=== PATIENT | female | born 1985 | race Hispanic/Latino ===

== ENCOUNTER 2023-08-23 12:01 | Emergency (ER) | payer OTHER ==
[2023-08-23 14:08] LABS: Absolute Lymphocytes (CBC) 1.3 K/uL (0.7-4.9); Hematocrit 38.8 % (36.0-45.0); Lymphocytes % 18.8 % (15.3-44.8); MCV 96.6 fL (80-100); MPV 7.5 fL (7.6-11.3); Platelets 330 thou/uL (152-406); RBC Red Blood Cell Count 4.02 M/uL (3.86-4.86)
[2023-08-23 14:16] LABS: Protime INR 1.03
[2023-08-23 14:27] LABS: Albumin 4.1 g/dL (3.4-5.0); Bilirubin Total 0.7 mg/dL (0.2-1.0); Potassium 3.6 mEq/L (3.5-5.1); Protein, Total 8.5 g/dL (6.4-8.2)
--- NOTE | 2023-08-23 16:25 | RAD REPORT ---
EXAM DESCRIPTION: CTAbdomen Pelvis W Contrast - 08/23/2023 4:03 pm CLINICAL HISTORY: Abdominal pain. ABD PAIN COMPARISON: No comparisons TECHNIQUE: Biphasic CT imaging of the abdomen and pelvis was performed with 100 ml non-ionic IV cont rast. All CT scans are performed using dose optimization technique as appropriate and may include automated exposure control or mA/KV adjustment according to patient size. FINDINGS: The lung bases are clear. The liver, spleen, pancreas, adrenal glands and kidneys are within normal limits. No bowel obstruction, free air, intra-abdominal free fluid or abscess. The appendix is normal. No e vidence of significant lymphadenopathy. Trace pelvic free fluid. No fracture evident. Mild sacroiliac joint sclerosis, greater on the left, could indicate sacroiliiti s. IMPRESSION: No acute intra-abdominal or pelvic finding.
--- NOTE | 2023-08-23 16:30 | ER ---
Nurse's Notes [facility] Name: Kayla Silva Age: 38 yrs Sex: Female : 1985 Arrival Date: 08/23/2023 Time: 12:01 Bed 16 Private MD: Diagnosis: Abdominal pain, rectal bleeding Presentation: 08/23 12:38 Chief complaint: Patient states: has had blood in my stool for a bout a week, has had iw diarrhea X 1 week , bright blood that looks like you poured dye in the toilet. Coronavirus screen: At this time, the client does not indicate any symptoms associated with coronavirus-19. Ebola Screen: Patient negative for fever greater than or equal to 101.5 degrees Fahrenheit, and additional compatible Ebola Virus Disease symptoms Patient denies exposure to infectious person. Patient denies travel to an Ebola-affected area in the 21 days before illness onset. No symptoms or risks identified at this time. Initial Sepsis Screen: Does the patient meet any 2 criteria? No. Patient's initial sepsis screen is negative. Does the patient have a suspected source of infection? No. Patient's initial sepsis screen is negative. Risk Assessment: Do you want to hurt yourself or someone else? Patient reports no desire to harm self or others. Onset of symptoms was August 17, 2023. 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 - Social history:: Smoking status: Reported history of juuling and/or vaping. Screenin:31 [facility] ED Fall Risk Assessment (Adult) History of falling in the last 3 months, ld1 including since admission No falls in past 3 months (0 pts). Abuse screen: Denies threats or abuse. Denies injuries from another. Nutritional screening: No deficits noted. Tuberculosis screening: No symptoms or risk factors identified. Assessment: 15:31 General: Appears in no apparent distress. comfortable, Behavior is calm, cooperative, ld1 appropriate for age. Pain: Denies pain. Neuro: Level of Consciousness is awake, alert, obeys commands, Oriented to person, place, time, situation. Cardiovascular: Capillary refill < 3 seconds Patient's skin is warm and dry. Respiratory: Airway is patent Respiratory effort is even, unlabored. GI: Abdomen is round non-distended, Reports bloody stool. : No signs and/or symptoms were reported regarding the genitourinary system. EENT: No signs and/or symptoms were reported regarding the EENT system. Derm: No signs and/or symptoms reported regarding the dermatologic system. Musculoskeletal: No signs and/or symptoms reported regarding the musculoskeletal system. Vital Signs: 12:38 BP 136 / 94; Pulse 78; Resp 16; Temp 98.6; Pulse Ox 100% on R/A; iw 15:37 BP 154 / 66; Pulse 78; Resp 18; Pulse Ox 100% on R/A; Pain 0/10; ld1 15:37 Pain Scale: Adult ld1 ED Course: 12:03 Patient arrived in ED. mg5 12:11 Kimberley Taylor MD is Attending Physician. sp3 12:40 Triage completed. iw 12:40 Arm band placed on. iw 13:56 PT-INR Sent. bc6 13:56 CBC with Diff Sent. bc6 13:56 CMP Sent. bc6 13:56 Lipase Sent. bc6 13:56 Inserted saline lock: 22 gauge in left antecubital area, using aseptic technique. Blood bc6 collected. 15:31 Lientte Miranda, RN is Primary Nurse. ld1 15:31 Patient has correct armband on for positive identification. Bed in low position. Call ld1 light in reach. Side rails up X2. Pulse ox on. NIBP on. Door closed. Noise minimized. Warm blanket given. 15:31 No provider procedures requiring assistance completed. ld1 16:05 CT Abd/Pelvis - IV Contrast Only In Process Unspecified. EDMS 16:29 Dani Tolentino MD is Referral Physician. sp3 16:35 IV discontinued, intact, bleeding controlled, No redness/swelling at site. ld1 Administered Medications: No medications were administered Medication: 15:31 VIS not applicable for this client. ld1 Outcome: 16:30 Discharge ordered by . sp3 16:34 Discharged to home ambulatory, ld1 16:34 Condition: stable 16:34 Discharge instructions given to patient, Instructed on discharge instructions, follow up and referral plans. Demonstrated understanding of instructions, follow-up care, 16:35 Patient left the ED. ld1 Signatures: Dispatcher [employer] Kimberly Pérez, EILEEN ARELLANO iw Linette Miranda RN RN ld1 Kimberley Taylor MD MD sp3 Nati Mcdaniel 6 Michelle Marcelino mg5 Corrections: (The following items were deleted from the chart) 12:41 12:40 Home Meds: None; iw iw 12:42 12:38 Pulse 78bpm; Resp 16bpm; Pulse Ox 100% RA; Temp 98.6F; iw iw
--- NOTE | 2023-08-23 16:31 | EDPHYS ---
Physician Documentation [facility] Name: Kayla Silva Age: 38 yrs Sex: Female : 1985 Arrival Date: 08/23/2023 Time: 12:01 Bed 16 Private MD: ED Physician Kimberley Taylor HPI: 08/23 15:46 This 38 yrs old Female presents to ER via Ambulatory with complaints of Bloody sp3 Stools. 15:46 38-year-old female with no past medical history [facility] to episodic abdominal pain and bright red blood per rectum off-and-on for the past 8 days. Patient states that she has an increased workout routine that may have something to do with it. She denies any current pain or any current diarrhea. Last bright red blood per rectum was yesterday. She denies any fever, vomiting, prior surgical history, rash, known sick contacts, potential bad food, or any other signs or symptoms on ROS at this time.. 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 - Social history:: Smoking status: Reported history of juuling and/or vaping. ROS: 15:48 Constitutional: Negative for fever, chills, and weight loss, Eyes: Negative for injury, sp3 pain, redness, and discharge, ENT: Negative for injury, pain, and discharge, Neck: Negative for injury, pain, and swelling, Cardiovascular: Negative for chest pain, palpitations, and edema, Respiratory: Negative for shortness of breath, cough, wheezing, and pleuritic chest pain, Back: Negative for injury and pain, MS/Extremity: Negative for injury and deformity, Skin: Negative for injury, rash, and discoloration, Neuro: Negative for headache, weakness, numbness, tingling, and seizure, 15:48 All other systems are negative, Exam: 15:48 Constitutional: This is a well developed, well nourished patient who is awake, alert, sp3 and in no acute distress. Head/Face: Normocephalic, atraumatic. Eyes: Pupils equal round and reactive to light, extra-ocular motions intact. Lids and lashes normal. Conjunctiva and sclera are non-icteric and not injected. Cornea within normal limits. Periorbital areas with no swelling, redness, or edema. ENT: Nares patent. No nasal discharge, no septal abnormalities noted. External auditory canals are clear. Oropharynx with no redness, swelling, or masses, exudates, or evidence of obstruction, uvula midline. Mucous membranes moist. Neck: Trachea midline, no thyromegaly or masses palpated, and no cervical lymphadenopathy. Supple, full range of motion without nuchal rigidity, or vertebral point tenderness. No Meningismus. Chest/axilla: Normal chest wall appearance and motion. Nontender with no deformity. No lesions are appreciated. Cardiovascular: Regular rate and rhythm with a normal S1 and S2. No gallops, murmurs, or rubs. Normal PMI, no JVD. No pulse deficits. Respiratory: Lungs have equal breath sounds bilaterally, clear to auscultation and percussion. No rales, rhonchi or wheezes noted. No increased work of breathing, no retractions or nasal flaring. Back: No spinal tenderness. No costovertebral tenderness. Full range of motion. Skin: Warm, dry with normal turgor. Normal color with no rashes, no lesions, and no evidence of cellulitis. MS/ Extremity: Pulses equal, no cyanosis. Neurovascular intact. Full, normal range of motion. Neuro: Awake and alert, GCS 15, oriented to person, place, time, and situation. Cranial nerves II-XII grossly intact. Motor strength 5/5 in all extremities. Sensory grossly intact. Cerebellar exam normal. Normal gait. Psych: Awake, alert, with orientation to person, place and time. Behavior, mood, and affect are within normal limits. 15:48 Abdomen/GI: Mild diffuse tenderness to deep palpation otherwise no peritoneal signs, rebound or guarding. Rectal exam demonstrates no bleeding and positive internal and external hemorrhoids., Vital Signs: 12:38 BP 136 / 94; Pulse 78; Resp 16; Temp 98.6; Pulse Ox 100% on R/A; iw 15:37 BP 154 / 66; Pulse 78; Resp 18; Pulse Ox 100% on R/A; Pain 0/10; ld1 15:37 Pain Scale: Adult ld1 MDM: 12:51 Patient medically screened. sp3 15:49 Data reviewed: vital signs, nurses notes, lab test result(s), radiologic studies. ED sp3 course: Initial laboratory values are all normal. CT scan of the abdomen pelvis is pending. If work-up is negative, we will safely discharge patient home with follow-up to GI for potential further work-up and/or colonoscopy. I am not highly suspicious for bowel obstruction, gastroenteritis, significant GI bleed, or any other critical pathology at this time.. 16:28 ED course: CT scan of the abdomen pelvis demonstrates no significant abnormality. We sp3 will safely discharge patient home at this time with GI follow-up.. 08/23 12:43 Order name: CBC with Diff; Complete Time: 14:58 sp3 08/23 12:43 Order name: CMP; Complete Time: 14:58 sp3 08/23 12:43 Order name: Lipase; Complete Time: 14:58 sp3 08/23 12:43 Order name: PT-INR; Complete Time: 14:58 sp3 08/23 15:40 Order name: CT Abd/Pelvis - IV Contrast Only; Complete Time: 16:28 sp3 08/23 12:43 Order name: IV Saline Lock; Complete Time: 13:56 sp3 08/23 12:43 Order name: Labs collected and sent; Complete Time: 13:56 sp3 Administered Medications: No medications were administered Disposition Summary: 08/23/23 16:30 Discharge Ordered Notes: Location: Home sp3 Condition: Stable sp3 Diagnosis - Abdominal pain, rectal bleeding sp3 Followup: sp3 - With: Dani Tolentino MD - When: Upon discharge from the Emergency Department - Reason: Recheck today's complaints Discharge Instructions: - Discharge Summary Sheet sp3 - Rectal Bleeding sp3 Forms: - Medication Reconciliation Form sp3 - Thank You Letter sp3 - Antibiotic Education sp3 - Prescription Opioid Use sp3 - Patient Portal Instructions sp3 - Leadership Thank You Letter sp3 Signatures: Dispatcher [employer] Kimberly Pérez RN RN iw Patel, Setul, MD MD sp3 Corrections: (The following items were deleted from the chart) 12:41 12:40 Home Meds: None; iw iw
[2023-08-23 17:25] VITALS: TEMP 98.6; O2SAT 100
[2023-08-23 17:27] VITALS: BP 154/66
== END 2023-08-23 16:35 | disposition home or self-care (01) ==
LOC: ER 12:01
DX: R10.9 Unspecified abdominal pain (principal); K62.5 Hemorrhage of anus and rectum; Z98.82 Breast implant status
CPT/HCPCS: 85025; 36415; 85610; 83690; 80053; 74177; 99284; Q9967